=== PATIENT | male | born 1980 | race Caucasian/White ===

== ENCOUNTER 2016-12-03 08:08 | Emergency (ER) | payer MEDICARE, MEDICAID ==
[~2016-12-03] VITALS: Ht 190.5 cm; Wt 93.0 kg
--- NOTE | 2016-12-03 08:04 | Emergency Room Report ---
History of Present Illness General Source: Patient, EMS Present Illness HPI Patient 35-year-old male brought in by EMS after increased agitation. The patient was noted to have prior history of psychiatric disease. He reports taking Seroquel 600 mg. Per EMS patient had been found running in and out of [place] and hopping fences. The patient had reported injury to his left hand. He states is had a tetanus vaccine recently. He denies any fever.Patient had been brought in by EMS with [employer] Allergies: Coded Allergies: No Known Allergies (Unverified , 12/03/16) Patient History Past Medical History: see triage record Reviewed Nursing Documentation: PMH: Agreed, PSxH: Agreed Review of Systems All Other Systems: limited - by poor cooperation Physical Exam Sp02 EP Interpretation: reviewed, normal General Appearance: normal inspection, well appearing, no apparent distress, alert, GCS 15 Head: atraumatic ENT: normal ENT inspection, hearing grossly normal, normal voice Neck: normal inspection, full range of motion, supple, no bony tend Respiratory: normal inspection, lungs clear, normal breath sounds, no respiratory distress, no retraction, no wheezing Cardiovascular #1: regular rate, rhythm, no edema Gastrointestinal: normal inspection, normal bowel sounds, non tender, soft, no guarding, no hernia Genitourinary: no CVA tenderness Musculoskeletal: normal inspection, back normal, normal range of motion Neurologic: normal inspection, alert, oriented x3, responsive, graphite grinder III-XII nml as tested, speech normal Psychiatric: normal inspection, judgement/insight normal, mood/affect normal Skin: normal color, no rash, other - abrasion to left hand Medical Decision Making Diagnostic Impression: Primary Impression: Substance abuse ER Course Patient presented for agitation. Differential diagnoses include substance abuse, psychosis, bipolar disorder, depression, malingering. Because of complexity of patient's case laboratory testing and imaging studies were ordered.The patient noted be have urine positive for methamphetamine. The patient subsequently admitted to using methamphetamine yesterday. The patient been given Haldol IM for agitation. Patient is to have improvement in his symptoms. At the time of patient's discharge patient is awake alert and oriented at a good plan for self care. He denied any suicidal thoughts. Patient was advised to stop using methamphetamine Labs Test 12/03/16 09:04 Urine Opiates Screen Negative (NEGATIVE) Urine Barbiturates Screen Negative (NEGATIVE) Phencyclidine (PCP) Screen Negative (NEGATIVE) Urine Amphetamines Screen Positive (NEGATIVE) Urine Benzodiazepines Screen Negative (NEGATIVE) Urine Cocaine Screen Negative (NEGATIVE) Urine Marijuana (THC) Screen Negative (NEGATIVE) Status: improved Disposition: HOME, SELF-CARE Condition: Bud Regalado Dec 03, 2016 08:04
[~2016-12-03 08:08] MED LIST: PROZAC10 MG ORAL
[2016-12-03] MEDS ORDERED: Haloperidol 5mg/ml Inj IM ONE (08:15)
[2016-12-03] MEDS ORDERED: DiphenhydrAMINE 50mg/ml Inj IM ONE (08:15)
[2016-12-03 08:41] VITALS: BP 126/81
[2016-12-03 09:36] VITALS: BP 145/83
[2016-12-03 12:22] VITALS: BP 138/79
[2016-12-03 12:25] VITALS: BP 138/79
== END 2016-12-03 12:30 | disposition home or self-care (01) ==
LOC: EDBD 08:08 → EMR 08:40
DX: F19.10 Other psychoactive substance abuse, uncomplicated (principal); S60.512A Abrasion of left hand, initial encounter; X58.XXXA Exposure to other specified factors, initial encounter; Y93.02 Activity, running; Y99.9 Unspecified external cause status; Z86.59 Personal history of other mental and behavioral disorders; R45.1 Restlessness and agitation
CPT/HCPCS: 80300; 96372; 99284; J1200; J1630